=== PATIENT | male | born 1990 | race Caucasian/White ===

== ENCOUNTER 2018-12-12 02:41 | Emergency (ER) | payer OTHER ==
[~2018-12-12] VITALS: Ht 175.3 cm; Wt 67.6 kg
[2018-12-12] MEDS ORDERED: AMOXICILLIN 50500 M1 PO (03:07)
[2018-12-12] MEDS ORDERED: TYLENOL WITH CO1 TA1 PO (03:07)
[2018-12-12 03:34] VITALS: BP 133/84
== END 2018-12-12 03:34 | disposition home or self-care (01) ==
LOC: M.ERS 02:41
DX: H92.01 Otalgia, right ear (principal); Z90.49 Acquired absence of other specified parts of digestive tract